=== PATIENT | female | born 1955 | race Hispanic/Latino ===

== ENCOUNTER 2017-03-02 12:46 | Outpatient (CLI) | payer BC ==
--- NOTE | 2017-03-02 16:09 | XRay Report ---
RIGHT ANKLE THREE VIEWS: 03/02/17 12:46:00 CLINICAL: Pain. FINDINGS: The ankle mortise is intact. No fracture or dislocation. Moderate soft tissue swelling with slightly greater swelling laterally. No soft tissue air or foreign body. IMPRESSION: Soft tissue swelling but otherwise negative.
--- NOTE | 2017-03-02 16:15 | XRay Report ---
Right wrist: Pain, prior trauma. There are fractures involving the distal radius and ulnar. The distal radius fracture separates the articular surface into medial and lateral components with the thenar side component being stabilized in good position by an oblique pin. The hypo-thenar component is in good alignment and apposition. The distal fragment of the ulnar is angled and displaced posteriorly. The carpal bones appear intact. There is diffuse soft tissue swelling. The wrist is stabilized by external bracing with pins placed through the mid shaft of the radius and second metacarpal. No evidence of bony union at this time. Impression: Findings support a recent fracture with alignment as described.
== END 2017-03-02 12:47 | disposition home or self-care (01) ==
LOC: SPVIMAG 12:46
PROVIDERS: ATTEND Orthopaedic Surgery Sports Medicine
DX: S52.501A Unspecified fracture of the lower end of right radius, initial encounter for closed fracture (principal); S52.201A Unspecified fracture of shaft of right ulna, initial encounter for closed fracture; M25.571 Pain in right ankle and joints of right foot; M25.471 Effusion, right ankle; X58.XXXA Exposure to other specified factors, initial encounter; Y93.89 Activity, other specified; Y92.89 Other specified places as the place of occurrence of the external cause; Y99.8 Other external cause status

== ENCOUNTER 2017-03-24 15:22 | Outpatient (CLI) | payer BC ==
--- NOTE | 2017-03-25 21:12 | XRay Report ---
FINAL REPORT PROCEDURE: XR WRIST 3+V RT TECHNIQUE: Right wrist, three views HISTORY: OPEN FRACTURE OF RIGHT WRIST COMPARISON: No prior studies are available for comparison. FINDINGS: An external fixation device traverses the wrist. There are comminuted fractures of the distal radius and ulna. Orthopedic pin traverses distal radial fracture fragments. IMPRESSION: Patient status post external fixation of distal radius fracture.
== END 2017-03-24 15:23 | disposition home or self-care (01) ==
LOC: SPVIMAG 15:22
PROVIDERS: ATTEND Orthopaedic Surgery Sports Medicine
DX: S62.101D Fracture of unspecified carpal bone, right wrist, subsequent encounter for fracture with routine healing (principal); X58.XXXD Exposure to other specified factors, subsequent encounter

== ENCOUNTER 2017-04-27 08:48 | Outpatient (CLI) | payer BC ==
--- NOTE | 2017-04-27 10:25 | XRay Report ---
XRAY RIGHT SHOULDER THREE VIEWS: 04/27/17 08:48:00 CLINICAL: Right shoulder pain. FINDINGS: Mild diffuse osteopenia. No fracture or dislocation. Mild acromioclavicular joint arthritis. No bone lesion. Normal soft tissues. IMPRESSION: Mild acromioclavicular joint arthritis and otherwise negative.
--- NOTE | 2017-04-27 14:12 | XRay Report ---
RIGHT WRIST FOUR VIEWS: 04/27/17 CLINICAL: Right wrist pain. Followup fractures. COMPARISON: 03/24/17 FINDINGS: Moderate osteopenia. Since the prior exam, an external fixator and a K wire in the distal radius have been removed. Comminuted impacted displaced fractures of the distal radius no ulna with less distinct fracture lines compared to the prior exam. No acute fracture or dislocation. The carpal bones are intact. Normal soft tissues. IMPRESSION: Healing fractures of the distal radius and ulna with less distinct fracture lines compared to the last exam.
== END 2017-04-27 08:49 | disposition home or self-care (01) ==
LOC: SPVIMAG 08:48
PROVIDERS: ATTEND Orthopaedic Surgery Sports Medicine
DX: S62.101D Fracture of unspecified carpal bone, right wrist, subsequent encounter for fracture with routine healing (principal); M19.011 Primary osteoarthritis, right shoulder; M85.811 Other specified disorders of bone density and structure, right shoulder; M85.88 Other specified disorders of bone density and structure, other site; X58.XXXD Exposure to other specified factors, subsequent encounter

== ENCOUNTER 2017-05-25 08:20 | Outpatient (CLI) | payer BC ==
--- NOTE | 2017-05-25 08:44 | XRay Report ---
RIGHT WRIST FOUR VIEWS: 05/25/17 CLINICAL: Right wrist pain. Followup fractures. COMPARISON: 04/27/17 and 03/24/17 FINDINGS: Fracture lines distal radius and ulna are less distinct and there is slightly greater callus compared to previous exams. Stable diffuse osteopenia. IMPRESSION: Healing fractures of the distal radius and ulna.
== END 2017-05-25 08:21 | disposition home or self-care (01) ==
LOC: SPVIMAG 08:20
PROVIDERS: ATTEND Orthopaedic Surgery Sports Medicine
DX: S62.101B Fracture of unspecified carpal bone, right wrist, initial encounter for open fracture (principal); M85.88 Other specified disorders of bone density and structure, other site; M25.731 Osteophyte, right wrist; X58.XXXA Exposure to other specified factors, initial encounter; Y93.89 Activity, other specified; Y92.89 Other specified places as the place of occurrence of the external cause; Y99.8 Other external cause status

== ENCOUNTER 2017-07-08 08:25 | Outpatient (CLI) | payer BC ==
--- NOTE | 2017-07-08 09:04 | XRay Report ---
X-RAY RIGHT WRIST FOUR VIEWS: 07/08/17 CLINICAL: Right wrist pain. FINDINGS: Healing fractures of the distal radius and ulna with less distinct fracture lines and greater callus. IMPRESSION: Healing fracture is of the distal radius and ulna.
== END 2017-07-08 08:26 | disposition home or self-care (01) ==
LOC: SPVIMAG 08:25
PROVIDERS: ATTEND Orthopaedic Surgery Sports Medicine
DX: S62.101B Fracture of unspecified carpal bone, right wrist, initial encounter for open fracture (principal); X58.XXXA Exposure to other specified factors, initial encounter; Y93.89 Activity, other specified; Y92.89 Other specified places as the place of occurrence of the external cause; Y99.8 Other external cause status